=== PATIENT | male | born 1995 | race Caucasian/White ===

== ENCOUNTER 2018-08-22 07:51 | Emergency (ER) | payer BC ==
--- NOTE | 2018-08-22 07:56 | ER Report ---
History and Physical Time Seen By MD: 07:55 HPI/ROS CHIEF COMPLAINT: r ankle and foot pain HISTORY OF PRESENT ILLNESS: Pt states he went to bed fine. woke up this am and went to stand on his right foot and felt an immediate pop and pain under the arch of his r foot that radiated to his lateral aspect of right ankle. Pt state s that it is painful to put weight on that foot since that occurred. Took a tylenol and then came to the emergency room. No knee pain.no numbness to foot REVIEW OF SYSTEMS: Musculoskeletal: + r foot and ankle pain Neuro: no numbness Allergies: Coded Allergies: No Known Drug Allergies (Unverified , 11/13/16) Home Meds No Active Prescriptions or Reported Meds Past Medical/Surgical History Pmhx and Pshx: pt denies Reviewed Nurses Notes: Yes Old Medical Records Reviewed: Yes Hx Smoking: No Hx Substance Use Disorder: No Hx Alcohol Use: Yes (occasional) Constitutional Vital Sign - Last 24 Hours 08/22/18 08/22/18 07:55 08:03 Temp 98.0 98.0 Pulse 73 83 Resp 16 16 B/P (MAP) 133/86 133/86 (102) Pulse Ox 93 94 O2 Delivery Room Air Room Air Physical Exam General appearance: alert no distress Right ankle: There is no sigThe foot is non-tender without swelling.nificant swelling. There is no obvious deformity to the ankle. There is mild tenderness to the lateral malleolus but without swelling. Ankle joint is stable and there is no tenderness over the achilles tendon. + tendeerness over plantar facia near balls of R foot; no swelling; no flattening of arch; no tenderness at fibular head Neurologic exam: The patient has normal sensation distal to the injury. Vascular exam: Normal pulses and capillary refill in the foot DIFFERENTIAL DIAGNOSIS: After history and physical exam differential diagnosis was considered for ankle injury including sprain, fracture, dislocation and soft tissue injury. Medical Decision Making EKG/Imaging Imaging no fx ED Course/Re-evaluation ED Course xray No fx seen on xray. Pt still c/o of pain along plantar facia area as well as lateral maleolus. achilles intact. Pain worse with weight baring. will give pt crutches. Pt states he does not need to work today or tomorrow so told to rest and elevate. Nsaids provided. If not improving will need to follow up wtih Dr. Perdue, interactive media specialist at [facility]. Decision to Disposition Date: Aug 22, 2018 Decision to Disposition Time: 08:47 Depart Departure Latest Vital Signs Vital Signs Date Time Temp Pulse Resp B/P (MAP) Pulse Ox O2 Delivery O2 Flow Rate FiO2 08/22/18 08:03 98.0 83 16 133/86 (102) 94 Room Air Impression: Primary Impression: Plantar fasciitis of right foot Additional Impression: PAIN IN RIGHT ANKLE AND JOINTS OF RIGHT FOOT Condition: Condition Unchanged Disposition: HOME OR SELF-CARE Referrals: BLU JAVIER MD 1 Week If you are not feeling better after a week follow up with orthopedics. New Scripts No Active Prescriptions or Reported Meds Patient Instructions: Plantar Fasciitis (GEN) Additional Instructions: Your xrays today do not show a bone injury. Xrays do not show tendons or ligaments. It is possible that you have injured either your tendon or ligament. elevate and rest your foot. Use crutches and start to partial weight bare as tolerated. Motrin (advil,ibuprofen) 600mg every 6 hours for pain Tylenol 650mg every 4 hours as needed for pain. If not improving, follow up with orthopedics. Problem Qualifiers MEIR OSPINA DO Aug 22, 2018 07:56
--- NOTE | 2018-08-22 08:37 | RADIOLOGY IMAGING REPORT ---
FACILITY: [facility] PATIENT NAME: Venkat Osuna : 1995 MR: [id number] V: [id number] EXAM DATE: ORDERING PHYSICIAN: MEIR OSPINA TECHNOLOGIST: [place] [facility] [place] Venkat [place] : 1995 Visit/Account:[id number] Date of Sevice: 08/22/2018 Exam type: ANKLE 3 VIEW MIN RIGHT History: felt pop and pain bottom of foot and Lateral ankle Comparison: Right foot performed today. Findings: Three views of the right ankle demonstrates no evidence of acute fracture dislocation, radiopaque sof t tissue foreign body or significant arthritic change. IMPRESSION: 1. No acute osteoarticular abnormality the right ankle is seen Report Dictated By: Luly Guerrero MD at 08/22/2018 8:30 AM Report E-Signed By: Luly Guerrero MD at 08/22/2018 8:32 AM WSN:[email or web address]
--- NOTE | 2018-08-22 08:38 | RADIOLOGY IMAGING REPORT ---
FACILITY: [facility] [place] PATIENT NAME: Venkat Osuna : 1995 MR: [id number] V: [id number] EXAM DATE: ORDERING PHYSICIAN: MEIR OSPINA TECHNOLOGIST: Location: [facility] - [place] Patient: Venkat Osuna : 1995 Visit/Account:[id number] Date of Sevice: 08/22/2018 Exam type: FOOT 3 VIEWS RIGHT History: felt pop and pain bottom of foot and Lateral ankle Comparison: Right ankle performed today. Findings: Three views of the right foot demonstrate no evidence of acute fracture or dislocation or significant arthritic change. No radiopaque soft tissue foreign body seen IMPRESSION: 1. No acute osteoarticular abnormality of the right foot is seen Report Dictated By: Luly Guerrero MD at 08/22/2018 8:32 AM Report E-Signed By: Luly Guerrero MD at 08/22/2018 8:33 AM WSN:[email or web address]
[2018-08-22] MEDS ORDERED: IBUPROFEN 600 MG TAB PO ONE (08:45)
[2018-08-22 08:51] VITALS: BP 123/78
== END 2018-08-22 08:53 | disposition home or self-care (01) ==
LOC: ER 07:58
DX: M72.2 Plantar fascial fibromatosis (principal)
CPT/HCPCS: 99284